=== PATIENT | male | born 1975 | race American Indian/Alaskan Native ===

== ENCOUNTER 2019-07-11 15:14 | Emergency (ER) | payer SELFPAY ==
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
[2019-07-11] MEDS ORDERED: FLEXERIL PO ONE (17:04)
[2019-07-11] MEDS ORDERED: IBUPROFEN PO ONE (17:04)
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
[2019-07-11 17:36] VITALS: BP 163/107
== END 2019-07-11 17:48 | disposition home or self-care (01) ==
LOC: ED 15:14
DX: M25.511 Pain in right shoulder (principal); M25.512 Pain in left shoulder; R51 Headache; R03.0 Elevated blood-pressure reading, without diagnosis of hypertension; V89.2XXA Person injured in unspecified motor-vehicle accident, traffic, initial encounter; Y93.89 Activity, other specified; Y92.488 Other paved roadways as the place of occurrence of the external cause; Y99.8 Other external cause status
CPT/HCPCS: 70450; 72125; 99284